=== PATIENT | female | born 1955 | race Caucasian/White ===

== ENCOUNTER 2018-04-29 10:58 | Outpatient (CLI) | payer BC | END 2018-04-29 10:59 | disposition home or self-care (01) | LOC: BICMAMMO 10:58 | PROVIDERS: ATTEND Family Medicine | DX: Z12.31 Encounter for screening mammogram for malignant neoplasm of breast (principal); Z80.3 Family history of malignant neoplasm of breast | CPT/HCPCS: 77063; 77067 ==

== ENCOUNTER 2018-06-15 10:23 | Outpatient (CLI) | payer BC ==
--- NOTE | 2018-06-15 14:01 | ULT ---
ULTRASOUND HEPATIC DOPPLER: HISTORY: Abnormal labs. COMPARISON: None. TECHNIQUE: Real-time nowak-scale, color Doppler, and spectral analysis of the liver is performed. FINDINGS: The visualized portions of the aorta, IVC, and pancreas are unremarkable. The liver measures 17.4 cm in length. Mildly increased hepatic echotexture. Normal directional flow in the poral vein and hepatic vein. N ormal spectral wave-form of the portal vein. The gallbladder is normal. No pericholecystic fluid. There appears to be a 5 mm polyp of the gallbl adder wall. The common bile duct is normal. The spectral wave-form in the hepatic veins is normal. The right kidney measures 9.8 x 4.2 x 4.5 cm. The spleen measures 9.9 cm in length. There is normal directional flow of the splenic vessels. IMPRESSION: 1. Mildly increased hepatic echotexture, suggesting steatosis. 2. A 5 to 6 mm gallbladder polyp. This is likely sequela of adenomyomatosis. Followup in six month s to one year is recommended. 3. Normal directional flow of the hepatic vessels. POS: [facility]
== END 2018-06-15 10:24 | disposition home or self-care (01) ==
LOC: ULT 10:23
PROVIDERS: ATTEND Internal Medicine Critical Care Medicine
DX: E88.01 Alpha-1-antitrypsin deficiency (principal); K82.4 Cholesterolosis of gallbladder
CPT/HCPCS: 76705; 94060; 94727; 94729